=== PATIENT | female | born 1955 | race Caucasian/White ===

== ENCOUNTER 2016-11-17 09:59 | Emergency (ER) | payer OTHER, BC ==
[2016-11-17] MEDS ORDERED: KLONOPIN 1MG1 MG PO (10:22)
[2016-11-17] MEDS ORDERED: ORPHENADRINE C100 MG PO (11:05)
[2016-11-17] MEDS ORDERED: ULTRAM50 M1 PO (11:05)
[2016-11-17 11:19] VITALS: BP 143/95
== END 2016-11-17 11:12 | disposition home or self-care (01) ==
LOC: ED 09:59
DX: M54.5 Low back pain (principal); G89.29 Other chronic pain

== ENCOUNTER 2017-05-25 14:00 | Outpatient (RCR) | payer OTHER, BC ==
[~2017-05-25 14:00] MED LIST: KLONOPIN 1MG1 MG PO; ORPHENADRINE C100 MG PO; ULTRAM50 M1 PO
== END 2017-06-21 09:04 | disposition home or self-care (01) ==
LOC: PT 14:00
DX: M54.5 Low back pain (principal)

== ENCOUNTER → 2018-02-04 | Outpatient (CLI) | payer BC | LOC: RAD 09:53 | DX: S99.912A Unspecified injury of left ankle, initial encounter (principal) ==

== ENCOUNTER → 2018-06-20 | Outpatient (CLI) | payer SELFPAY ==
[2018-06-20 15:11] LABS: EOS # 0.1 (0.04-0.40); EOS % 1.3 % (1.0-5.0); HEMATOCRIT 45.3 % (37.0-47.0); HEMOGLOBIN 15.6 g/dL (12.5-16.0); LYMPH# 2.5 (1.50-4.00); MEAN CELL VOLUME 98 fl (78-100); MEAN CORPUSCULAR HEMOGLOBIN 34 pg (27-31); MEAN CORPUSCULAR HGB CONC 34 g/dL (33-37); MONO # 0.4 (0.20-0.80); NEU # 5.3 (1.40-6.50); PLATELET COUNT 196 K/mm3 (130-400); RED BLOOD COUNT 4.62 M/mm3 (4.10-5.30); WHITE BLOOD COUNT 8.3 K/mm3 (4.8-10.8)
[2018-06-20 19:29] LABS: ALBUMIN 4.5 g/dL (3.5-5.0); BUN/CREATININE RATIO 20.1 (6.0-26.0); CALCIUM 9.4 mg/dL (8.4-10.2); POTASSIUM 4.2 mmol/L (3.6-5.0); TOTAL BILIRUBIN 0.6 mg/dL (0.2-1.3); TOTAL PROTEIN 7.6 g/dL (6.3-8.2)
[2018-06-21 13:52] LABS: HEPATITIS B SURFACE ANTIBODY 30.8 (())
== END ==
LOC: LAB 14:22
PROVIDERS: Family Medicine
DX: Z71.89 Other specified counseling (principal); E03.9 Hypothyroidism, unspecified; I10 Essential (primary) hypertension

== ENCOUNTER → 2021-02-17 | Outpatient (CLI) | payer MEDICARE ==
[2021-02-17 15:48] LABS: ALBUMIN 4.2 g/dL (3.4-4.8); POTASSIUM 4.2 mmol/L (3.5-5.1)
[2021-02-17 15:49] LABS: CALCIUM 8.8 mg/dL (8.3-10.5)
[2021-02-17 15:51] LABS: TOTAL PROTEIN 7.2 g/dL (6.2-8.1)
[2021-02-17 15:52] LABS: TOTAL BILIRUBIN 0.4 mg/dL (0.2-1.2)
[2021-02-17 16:08] LABS: EOS # 0.1 (0.04-0.40); EOS % 1.4 % (1.0-5.0); HEMATOCRIT 46.5 % (37.0-47.0); HEMOGLOBIN 15.2 g/dL (12.5-16.0); LYMPH# 2.2 (1.50-4.00); MEAN CELL VOLUME 100 fl (78-100); MEAN CORPUSCULAR HEMOGLOBIN 33 pg (27-31); MEAN CORPUSCULAR HGB CONC 33 g/dL (33-37); MONO # 0.4 (0.20-0.80); PLATELET COUNT 178 K/mm3 (130-400); RED BLOOD COUNT 4.67 M/mm3 (4.10-5.30); RED CELL DISTRIBUTION WIDTH 12.8 % (11.5-14.5); WHITE BLOOD COUNT 6.7 K/mm3 (4.8-10.8)
[2021-02-17 16:09] LABS: MEAN PLATELET VOLUME 12.7 fl (7.4-10.4)
== END ==
LOC: LAB 14:47
PROVIDERS: Family Medicine
DX: Z00.00 Encounter for general adult medical examination without abnormal findings (principal); E78.5 Hyperlipidemia, unspecified; E03.9 Hypothyroidism, unspecified; M85.80 Other specified disorders of bone density and structure, unspecified site

== ENCOUNTER → 2021-05-05 | Outpatient (CLI) | payer MEDICARE ==
[2021-05-05 10:39] LABS: ALBUMIN 4.4 g/dL (3.4-4.8); POTASSIUM 4.8 mmol/L (3.5-5.1)
[2021-05-05 10:40] LABS: CALCIUM 9.5 mg/dL (8.3-10.5)
[2021-05-05 10:41] LABS: TOTAL PROTEIN 7.7 g/dL (6.2-8.1)
[2021-05-05 10:43] LABS: TOTAL BILIRUBIN 0.5 mg/dL (0.2-1.2)
== END ==
LOC: LAB 10:01
PROVIDERS: Family Medicine
DX: I10 Essential (primary) hypertension (principal)

== ENCOUNTER → 2022-01-28 | Outpatient (CLI) | payer MEDICARE ==
[2022-01-28 09:02] LABS: BASO # 0.05 K/mm3 (0.02-0.10); EOS # 0.08 K/mm3 (0.04-0.40); EOS % 0.9 % (1.0-5.0); HEMOGLOBIN 16.5 g/dL (12.5-16.0); LYMPH# 2.04 K/mm3 (1.50-4.00); MEAN CELL VOLUME 103 fl (78-100); MEAN CORPUSCULAR HEMOGLOBIN 34 pg (27-31); MEAN CORPUSCULAR HGB CONC 33 g/dL (33-37); MEAN PLATELET VOLUME 11.6 fl (7.4-10.4); MONO # 0.61 K/mm3 (0.20-0.80); NEU # 6.03 K/mm3 (1.40-6.50); PLATELET COUNT 237 K/mm3 (130-400); RED BLOOD COUNT 4.85 M/mm3 (4.10-5.30); RED CELL DISTRIBUTION WIDTH 12.6 % (11.5-14.5); WHITE BLOOD COUNT 8.8 K/mm3 (4.8-10.8)
[2022-01-28 09:16] LABS: ALBUMIN 4.7 g/dL (3.4-4.8); POTASSIUM 4.2 mmol/L (3.5-5.1); SODIUM 143 mmol/L (136-145)
[2022-01-28 09:17] LABS: CALCIUM 10.3 mg/dL (8.3-10.5)
[2022-01-28 09:19] LABS: GLUCOSE 99 mg/dL (65-105); TOTAL PROTEIN 7.9 g/dL (6.2-8.1)
[2022-01-28 09:20] LABS: CARBON DIOXIDE 23 mmol/L (23-31); TOTAL BILIRUBIN 0.8 mg/dL (0.2-1.2)
[2022-01-28 09:24] LABS: AST-SGOT 23 U/L (5-34)
[2022-01-28 09:25] LABS: ALT/SGPT 19 U/L (0-55)
[2022-01-28 10:14] LABS: TROPONIN-I < 0.030 ng/mL (<0.030)
== END ==
LOC: LAB 08:41
PROVIDERS: Family Medicine
DX: R07.9 Chest pain, unspecified (principal); M46.96 Unspecified inflammatory spondylopathy, lumbar region; G89.29 Other chronic pain; I10 Essential (primary) hypertension; E03.9 Hypothyroidism, unspecified; F41.8 Other specified anxiety disorders; G62.9 Polyneuropathy, unspecified; M85.80 Other specified disorders of bone density and structure, unspecified site; G47.09 Other insomnia; Z72.0 Tobacco use

== ENCOUNTER → 2022-04-13 | Outpatient (CLI) | payer MEDICARE ==
[2022-04-13 12:34] LABS: POTASSIUM 4.4 mmol/L (3.5-5.1)
[2022-04-13 12:35] LABS: ALBUMIN 4.6 g/dL (3.4-4.8)
[2022-04-13 12:36] LABS: CALCIUM 9.7 mg/dL (8.3-10.5)
[2022-04-13 12:37] LABS: TOTAL PROTEIN 7.7 g/dL (6.2-8.1)
[2022-04-13 12:39] LABS: TOTAL BILIRUBIN 0.4 mg/dL (0.2-1.2)
== END ==
LOC: RAD 12:00
PROVIDERS: Family Medicine
DX: Z00.00 Encounter for general adult medical examination without abnormal findings (principal); M19.011 Primary osteoarthritis, right shoulder; M47.812 Spondylosis without myelopathy or radiculopathy, cervical region; E78.5 Hyperlipidemia, unspecified; F41.8 Other specified anxiety disorders; G62.9 Polyneuropathy, unspecified; G47.09 Other insomnia; Z72.0 Tobacco use; Z98.1 Arthrodesis status

== ENCOUNTER → 2022-07-20 | Outpatient (CLI) | payer MEDICARE | LOC: RAD 11:00 | DX: M25.511 Pain in right shoulder (principal) ==

== ENCOUNTER → 2023-08-23 | Outpatient (CLI) | payer MEDICARE | LOC: MAMMO 07:11 | DX: N63.25 Unspecified lump in the left breast, overlapping quadrants (principal); N63.15 Unspecified lump in the right breast, overlapping quadrants; S22.080A Wedge compression fracture of T11-T12 vertebra, initial encounter for closed fracture; S22.000A Wedge compression fracture of unspecified thoracic vertebra, initial encounter for closed fracture; I31.9 Disease of pericardium, unspecified; N60.12 Diffuse cystic mastopathy of left breast; N60.11 Diffuse cystic mastopathy of right breast ==

== ENCOUNTER → 2024-04-21 | Outpatient (CLI) | payer MEDICARE | LOC: RAD 07:47 | DX: M47.816 Spondylosis without myelopathy or radiculopathy, lumbar region (principal); M48.54XA Collapsed vertebra, not elsewhere classified, thoracic region, initial encounter for fracture ==

== ENCOUNTER → 2024-07-28 | Outpatient (CLI) | payer MEDICARE ==
[2024-07-28 12:23] LABS: BASO # 0.02 K/mm3 (0.02-0.10); EOS # 0.04 K/mm3 (0.04-0.40); EOS % 0.5 % (1.0-5.0); HEMATOCRIT 51.4 % (37.0-47.0); HEMOGLOBIN 17.1 g/dL (12.5-16.0); LYMPH# 2.24 K/mm3 (1.50-4.00); MEAN CELL VOLUME 101 fl (78-100); MEAN CORPUSCULAR HEMOGLOBIN 34 pg (27-31); MEAN CORPUSCULAR HGB CONC 33 g/dL (33-37); MEAN PLATELET VOLUME 11.9 fl (7.4-10.4); MONO # 0.39 K/mm3 (0.20-0.80); NEU # 5.99 K/mm3 (1.40-6.50); PLATELET COUNT 213 K/mm3 (130-400); RED BLOOD COUNT 5.07 M/mm3 (4.10-5.30); RED CELL DISTRIBUTION WIDTH 12.7 % (11.5-14.5); WHITE BLOOD COUNT 8.7 K/mm3 (4.8-10.8)
[2024-07-28 12:39] LABS: ALBUMIN 4.6 g/dL (3.4-4.8)
[2024-07-28 12:40] LABS: CALCIUM 9.4 mg/dL (8.3-10.5)
[2024-07-28 12:42] LABS: TOTAL PROTEIN 7.2 g/dL (6.2-8.1)
[2024-07-28 12:43] LABS: TOTAL BILIRUBIN 0.4 mg/dL (0.2-1.2)
== END ==
LOC: LAB 11:52
PROVIDERS: Nurse Practitioner
DX: Z00.00 Encounter for general adult medical examination without abnormal findings (principal); E55.9 Vitamin D deficiency, unspecified; E78.5 Hyperlipidemia, unspecified; E03.9 Hypothyroidism, unspecified

== ENCOUNTER → 2024-08-11 | Outpatient (CLI) | payer MEDICARE ==
[2024-08-11 23:33] LABS: FOLATE (FOLIC ACID) 9.1 ng/mL (2.0-20.0)
== END ==
LOC: LAB 11:56
PROVIDERS: Nurse Practitioner
DX: D53.9 Nutritional anemia, unspecified (principal)

== ENCOUNTER → 2024-11-03 | Outpatient (CLI) | payer MEDICARE ==
[2024-11-03 15:05] LABS: BASO # 0.05 K/mm3 (0.02-0.10); EOS # 0.03 K/mm3 (0.04-0.40); EOS % 0.3 % (1.0-5.0); HEMATOCRIT 48.2 % (37.0-47.0); LYMPH# 2.09 K/mm3 (1.50-4.00); MEAN CELL VOLUME 101 fl (78-100); MEAN CORPUSCULAR HEMOGLOBIN 34 pg (27-31); MEAN CORPUSCULAR HGB CONC 33 g/dL (33-37); MEAN PLATELET VOLUME 11.2 fl (7.4-10.4); MONO # 0.43 K/mm3 (0.20-0.80); PLATELET COUNT 258 K/mm3 (130-400); RED BLOOD COUNT 4.77 M/mm3 (4.10-5.30); RED CELL DISTRIBUTION WIDTH 12.5 % (11.5-14.5)
[2024-11-03 15:10] LABS: ALBUMIN 4.7 g/dL (3.4-4.8)
[2024-11-03 15:11] LABS: SODIUM 146 mmol/L (136-145)
[2024-11-03 15:12] LABS: CALCIUM 9.8 mg/dL (8.3-10.5)
[2024-11-03 15:13] LABS: GLUCOSE 94 mg/dL (65-105)
[2024-11-03 15:14] LABS: CARBON DIOXIDE 23 mmol/L (23-31)
[2024-11-03 15:15] LABS: TOTAL BILIRUBIN 0.4 mg/dL (0.2-1.2)
[2024-11-03 15:18] LABS: AST-SGOT 23 U/L (5-34)
[2024-11-03 15:19] LABS: ALT/SGPT 24 U/L (0-55)
[2024-11-03 15:26] LABS: TROPONIN-I < 0.030 ng/mL (0.00-0.033)
== END ==
LOC: MAMMO 14:00 → LAB 14:37 → MAMMO 14:37
PROVIDERS: Nurse Practitioner
DX: R68.84 Jaw pain (principal); E55.9 Vitamin D deficiency, unspecified

== ENCOUNTER → 2024-12-05 | Outpatient (CLI) | payer MEDICARE | LOC: MAMMO 07:30 | DX: N63.10 Unspecified lump in the right breast, unspecified quadrant (principal); N63.20 Unspecified lump in the left breast, unspecified quadrant; R92.0 Mammographic microcalcification found on diagnostic imaging of breast ==

== ENCOUNTER → 2025-01-18 | Outpatient (CLI) | payer MEDICARE, MEDICAID | LOC: RAD 10:33 | DX: M16.12 Unilateral primary osteoarthritis, left hip (principal); M19.012 Primary osteoarthritis, left shoulder; Z98.890 Other specified postprocedural states ==